=== PATIENT | female | born 1945 | race Caucasian/White ===

== ENCOUNTER → 2016-11-07 | Outpatient (CLI) | payer MEDICARE, BC ==
--- NOTE | 2016-11-07 16:17 | FL ---
EXAMINATION TYPE: FL barium swallow DATE OF EXAM: 11/07/2016 LAP BANDING LIMITED ESOPHAGRAM: CLINICAL HISTORY: Dysphagia and vomiting for 2 to 3 weeks. History of lap band placed 6 years ago. L ap band fill was removed earlier today. TECHNIQUE: Limited esophagram is performed utilizing 2-3 oz of barium. A total of 30 seconds of fluo roscopic time was utilized during procedure. COMPARISON: Prior esophagram October 29, 2011.. FINDINGS: Pre-procedure automatic washer mechanic image shows lap band in satisfactory and stable position in proximal stomach just below the gastroesophageal junction. The patient then drank oral contrast. There is some esophageal dysmotility with abnormal secondary an d tertiary contractions present. There is good flow of contrast along the course of the lap band, th ere is no evidence of contrast extravasation to suggest leak. There is no significant lap band slipp age appreciated. IMPRESSION: No evidence of lap band slippage or significant obstruction.
== END | disposition home or self-care (01) ==
LOC: RADFLMAIN 15:43
PROVIDERS: ATTEND Surgery
DX: K21.9 Gastro-esophageal reflux disease without esophagitis (principal); R11.2 Nausea with vomiting, unspecified
CPT/HCPCS: 74220

== ENCOUNTER → 2016-11-18 | Outpatient (CLI) | payer MEDICARE, BC ==
[2016-11-18 15:20] VITALS: BP 181/72; PULSE 74; RESP 16; TEMP 98.3; BMI 39.4
--- NOTE | 2016-12-02 17:12 | P.HPBAR ---
Bariatric H&P - History & Physicial H&P Date: 11/18/16 History & Physicial: Visit/CC: Wants Band Out Patient initial contact: Initial weight: 96.275 kg Initial weight in pounds: 212.00 Height: 5 ft 1.5 in Initial BMI: 39.4 Last weight: Current weight: 96.275 kg Current weight in pounds: 212.00 Current BMI: 39.4 [place] body weight (based on NIH guidelines): 48.761 kg Excess body weight loss: 0.0% The patient is a 71 year-old F who presents for Bariatric Assessment. Patient presents today for removal LAP-BAND. She's had chronic issues dysphagia. She wished of the band removed. She's had chronic GERD. Past Medical History History of Any Multi-Drug Resistant Organisms: None Reported Smoking Status: Unknown if ever smoked Surgical - Exam Vital Signs Temp Pulse Resp BP 98.3 F 74 16 181/72 11/18/16 15:17 11/18/16 15:17 11/18/16 15:17 11/18/16 15:17 - Abdomen Abdomen: soft, non tender Bariatric Assessment & Plan Plan: Chronic GERD and dysphagia related to her LAP-BAND surgery. Patient will have her LAP-BAND removed. She'll be scheduled for sometime in December. Bariatric Checklist Checklist: Plan: Checklist: EGD: 1. Hiatal hernia: 2. H. Pylori: HgbA1c: Vitamin D: Smoking: Unknown if ever smoked Primary care physician referral: Psychiatry clearance: Cardiology clearance: Sleep study: Diet journal: VTE risk score: VTE risk level: Rehab needs at discharge:
== END | disposition home or self-care (01) ==
LOC: BARWHC3 12:58
PROVIDERS: ATTEND Surgery
DX: Z46.51 Encounter for fitting and adjustment of gastric lap band (principal); K21.9 Gastro-esophageal reflux disease without esophagitis; R13.10 Dysphagia, unspecified
CPT/HCPCS: 99201

== ENCOUNTER 2017-01-06 06:34 | Inpatient (IN) | payer MEDICARE, BC ==
[~2017-01-06 06:34] MED LIST: DEXAMETHASONE SOD PHOSPHATE 10 MG/ML 1 ML VIAL IV ONE; LACTATED RINGERS 1,000 ML IV SCH; ceFAZolin 2 GM in SODIUM CHLORIDE 0.9% 100 ML IVPB ONE
[2017-01-06] MEDS ORDERED: LACTATED RINGERS 1,000 ML IV ONE ×2 (06:55→10:40)
[2017-01-06] MEDS ORDERED: LIDOCAINE 1% 20 ML VIAL (10MG/ML) FOR IV START INTRADERMA ONE (06:55)
[2017-01-06] MEDS ORDERED: SCOPOLAMINE 1.5MG/72HR PATCH TRANSDERM ONE (07:02)
[2017-01-06] MEDS: ONDANSETRON 4 MG/2 ML VIAL IVP ONE ×2 (07:02→09:57)
[2017-01-06 07:05] LABS: Glucose,Whole Blood 149 mg/dL (75-99)
[2017-01-06] MEDS ORDERED: HEPARIN SODIUM,PORCINE 5,000 UNIT/ML 1 ML VIAL SQ ONE (07:44)
--- NOTE | 2017-01-06 07:56 | P.GSHP ---
History of Present Illness H&P Date: 01/06/17 Chief Complaint: Dysphagia This a 71-year-old female who is a chronic issues dysphagia. She presents today for removal of her LAP-BAND system. - Constitutional Constitutional: Reports as per HPI Past Medical History Past Medical History: Diabetes Mellitus, Fibromyalgia, GERD/Reflux, Hypertension , Osteoarthritis (OA), Skin Disorder, Thyroid Disorder Additional Past Medical History / Comment(s): CURRENT: ABD PAIN, NAUSEA, THE PORT IS "GETTING IN THE WAY. GETS RASH UNDER SKIN FOLDS.OCCASIONAL CHEST PAIN. FATTY LIVER. USES CPAP. History of Any Multi-Drug Resistant Organisms: None Reported Past Surgical History: Adenoidectomy, Bariatric Surgery, Cholecystectomy, Hysterectomy, Tonsillectomy Additional Past Surgical History / Comment(s): SINUS SURGERY Past Anesthesia/Blood Transfusion Reactions: Motion Sickness Past Psychological History: Depression Additional Psychological History / Comment(s): SAD Smoking Status: Never smoker Past Alcohol Use History: None Reported Past Drug Use History: None Reported - Past Family History Mother Family Medical History: No Reported History Medications and Allergies Home Medications Medication Instructions Recorded Confirmed Type Azelastine HCl [Astepro] 2 sprays NASAL BID PRN 11/22/16 12/30/16 History Benazepril HCl [Lotensin] 20 tab PO QAM 11/22/16 12/30/16 History Biotin 5,000 mcg PO DAILY 11/22/16 12/30/16 History Cetirizine HCl [Zyrtec ODT] 10 mg PO Q12H 11/22/16 12/30/16 History Docusate [Colace] 1 tab PO HS PRN 11/22/16 12/30/16 History Ergocalciferol (Vitamin D2) 50,000 unit PO MO 11/22/16 12/30/16 History [Vitamin D2] HYDROcodone/APAP 10-325MG [[place] 1 tab PO Q8H PRN 11/22/16 12/30/16 History 10-325] Levothyroxine Sodium [Synthroid] 150 mg PO QAM 11/22/16 12/30/16 History Lidocaine [Lidoderm 5% Patch] 1 patch TOPICAL Q12HR PRN 11/22/16 12/30/16 History Meloxicam [Mobic] 15 mg PO QAM 11/22/16 12/30/16 History Nitroglycerin Sl Tabs [Nitrostat] 0.4 mg PO DIRECTED 11/22/16 12/30/16 History Nystatin [Nystop] 60 gm TOPICAL DIRECTED PRN 11/22/16 12/30/16 History Omeprazole [PriLOSEC] 20 tab PO HS 11/22/16 12/30/16 History Phenylephrine HCl [Sudafed PE] 10 mg PO TID PRN 11/22/16 12/30/16 History Ranitidine HCl 150 mg PO HS PRN 11/22/16 12/30/16 History Torsemide [Demadex] 20 mg PO DAILY PRN 11/22/16 12/30/16 History amLODIPine [Norvasc] 10 tab PO QAM 11/22/16 12/30/16 History metFORMIN HCL [Glucophage] 1,000 tab PO BID 11/22/16 12/30/16 History tiZANidine [Zanaflex] 4 tab PO HS 11/22/16 12/30/16 History Aspirin [Adult Low Dose Aspirin EC] 81 mg PO DAILY 12/30/16 12/30/16 History Gabapentin [Neurontin] 600 mg PO HS 12/30/16 12/30/16 History Multivitamins, Thera [Multivitamin 1 tab PO DAILY 12/30/16 12/30/16 History (formulary)] Nasal [place] Uknown Name 1 spray NASAL DAILY PRN 12/30/16 12/30/16 History Allergies Allergy/AdvReac Type Severity Reaction Status Date / Time amitriptyline [From Elavil] Allergy Rash/Hives Verified 12/30/16 15:59 ketorolac [From Toradol] Allergy Rash/Hives Verified 12/30/16 15:59 latex Allergy Rash/Hives Verified 12/30/16 15:59 metolazone [From Zaroxolyn] Allergy Rash/Hives Verified 12/30/16 15:59 nitrofurantoin Allergy Rash/Hives Verified 12/30/16 15:59 [From Macrobid] tapentadol [From Nucynta] Allergy Rash/Hives Verified 12/30/16 15:59 codeine AdvReac Nausea & Verified 12/30/16 15:59 Vomiting loratadine [From Claritin] AdvReac Unknown Verified 12/30/16 15:59 morphine AdvReac Nausea & Verified 12/30/16 15:59 Vomiting nolex Allergy Rash/Hives Uncoded 12/30/16 15:59 novafed Allergy Rash/Hives Uncoded 12/30/16 15:59 surgical glue Allergy Rash/Hives Uncoded 12/30/16 15:59 Surgical - Exam Vital Signs Temp Pulse Resp BP Pulse Ox 98.0 F 75 18 141/75 95 01/06/17 06:48 01/06/17 06:48 01/06/17 06:48 01/06/17 06:48 01/06/17 06:48 - General well developed, no distress - Eyes PERRL - ENT normal pinna - Neck no masses - Respiratory normal expansion - Cardiovascular Rhythm: regular - Abdomen Abdomen: soft, non tender Results - Labs Abnormal Lab Results - Last 24 Hours (Table) 01/06/17 Range/Units 07:00 POC Glucose (mg/dL) 149 H (75-99) mg/dL Assessment and Plan Plan: Dysphagia, we'll perform removal of LAP-BAND system.
[2017-01-06] MEDS ORDERED: NEOSTIGMINE 1 MG/ML 10 ML VIAL ONE (08:00)
[2017-01-06] MEDS ORDERED: PROPOFOL 10 MG/ML 20 ML VIAL IV ONE (08:00)
[2017-01-06] MEDS ORDERED: SUCCINYLCHOLINE CHLORIDE 100 MG/5 ML SYR IV ONE (08:00)
[2017-01-06] MEDS ORDERED: GLYCOPYRROLATE 0.2 MG/ML 2 ML VIAL ONE (08:00)
[2017-01-06] MEDS ORDERED: fentaNYL (PF) 50 MCG/ML 2 ML AMP ONE (08:00)
[2017-01-06] MEDS ORDERED: ROCURONIUM BROMIDE 10 MG/ML 10 ML VIAL IV ONE (08:00)
[2017-01-06] MEDS ORDERED: MIDAZOLAM 2 MG/2 ML VIAL ONE (08:00)
[2017-01-06] MEDS ORDERED: HYDROmorphone (PF) 1 MG/ML ONE (08:00)
[2017-01-06] MEDS ORDERED: LIDOCAINE 1% INJ 10MG/ML (20 ML MDV) ONE (08:00)
[2017-01-06] MEDS ORDERED: BUPIVACAINE-EPI 0.5%-1:200,000 10 ML VIAL SQ ONE ×2 (08:28)
--- NOTE | 2017-01-06 09:08 | P.OP ---
Date of Procedure: 01/06/17 Preoperative Diagnosis: Dysphagia Postoperative Diagnosis: Dysphagia Procedure(s) Performed: Laparoscopic removal of LAP-BAND system Implants: Anesthesia: ANSHU Surgeon: Kavin Johnston Pathology: none sent Condition: stable Disposition: PACU Indications for Procedure: Operative Findings: Description of Procedure: The patient's placed on the operating table in the supine position. She received general anesthesia. Her abdomen was prepped and draped usual sterile fashion. The skin incision sites were anesthetized 1% local Xylocaine. The skin was incised at the LAP-BAND port then using blunt and sharp dissection with cautery the LAP-BAND port was dissected free from some taste tissues. Next using a 5 mm blade was trocar under direct visitation peritoneal cavity is entered and then the abdomen was insufflated. After adequate insufflation a fibrillar trocar is placed in the right epigastric right lateral and left lateral position. The initial fibrillar trocar was exchanged for a 15 mm trocar and then a 5 and trochars placed the left periumbilical area. The adhesions Adonay device were lysed using sharp dissection. The lap band buckle was then dissected and then the buckle was cut and the LAP-BAND device was withdrawn from around stomach. There is no evidence of any injury to the stomach. The LAP-BAND device was then brought up through the 15 mm trocar site. Is no bleeding seen. The trochars withdrawn. The skin was closed interrupted 3-0 Monocryl suture. Dermabond was applied. Patient top procedure well and was sent to recovery in stable condition.
[2017-01-06 09:33] VITALS: TEMP 97.6
[2017-01-06 09:34] VITALS: RESP 16
[2017-01-06] MEDS: HYDROmorphone 1 MG/ML 1 ML SYRINGE IVP PRN ×2 (09:46→10:04)
[2017-01-06 10:26] LABS: Glucose,Whole Blood 212 mg/dL (75-99)
[2017-01-06] MEDS ORDERED: INSULIN LISPRO (humaLOG) 300 UNIT/3 ML VIAL SQ ONE (10:27)
[2017-01-06 11:06] VITALS: BP 146/78; PULSE 68
== END 2017-01-06 12:08 | disposition home or self-care (01) | DRG 989 ==
LOC: 2ORWHC 06:34 → EDSTATUS 07:45
PROVIDERS: ADMIT Surgery; ATTEND Surgery
PROC: 0DP64CZ Removal of Extraluminal Device from Stomach, Percutaneous Endoscopic Approach (ICD-10-PCS; principal; 2017-01-06 07:40)
DX: K95.09 Other complications of gastric band procedure (principal); E11.9 Type 2 diabetes mellitus without complications; K76.0 Fatty (change of) liver, not elsewhere classified; I10 Essential (primary) hypertension; R13.10 Dysphagia, unspecified; F32.9 Major depressive disorder, single episode, unspecified; K21.9 Gastro-esophageal reflux disease without esophagitis; M79.7 Fibromyalgia; Z79.82 Long term (current) use of aspirin; Z79.899 Other long term (current) drug therapy; Z91.040 Latex allergy status; Z88.6 Allergy status to analgesic agent; Z88.8 Allergy status to other drugs, medicaments and biological substances

== ENCOUNTER → 2017-01-20 | Outpatient (CLI) | payer MEDICARE, BC ==
--- NOTE | 2017-01-20 16:19 | P.HPBAR ---
Bariatric H&P - History & Physicial H&P Date: 01/20/17 History & Physicial: Visit/CC: Patient initial contact: Initial weight: 96.275 kg Initial weight in pounds: Height: Initial BMI: Last weight: Current weight: Current weight in pounds: Current BMI: [place] body weight (based on NIH guidelines): Excess body weight loss: The patient is a 71 year-old F who presents for Bariatric Assessment. Patient is status post lap band removal. She has some mild pain at her port site. She' s also had some mild dysphagia. Past Medical History Past Medical History: Diabetes Mellitus, Fibromyalgia, GERD/Reflux, Hypertension , Osteoarthritis (OA), Skin Disorder, Thyroid Disorder Additional Past Medical History / Comment(s): CURRENT: ABD PAIN, NAUSEA, THE PORT IS "GETTING IN THE WAY. GETS RASH UNDER SKIN FOLDS.OCCASIONAL CHEST PAIN. FATTY LIVER. USES CPAP. History of Any Multi-Drug Resistant Organisms: None Reported Past Surgical History: Adenoidectomy, Bariatric Surgery, Cholecystectomy, Hysterectomy, Tonsillectomy Additional Past Surgical History / Comment(s): SINUS SURGERY Past Anesthesia/Blood Transfusion Reactions: Motion Sickness Past Psychological History: Depression Additional Psychological History / Comment(s): SAD Smoking Status: Never smoker Past Alcohol Use History: None Reported Past Drug Use History: None Reported - Past Family History Mother Family Medical History: No Reported History Surgical - Exam - General well developed, no distress - Eyes PERRL - Abdomen Abdomen: soft, non tender Bariatric Assessment & Plan Plan: Status post removal LAP-BAND. Patient will follow-up in 8 weeks. If her dysphagia is persistent she will undergo EGD. Bariatric Checklist Checklist: Plan: Checklist: EGD: 1. Hiatal hernia: 2. H. Pylori: HgbA1c: Vitamin D: Smoking: Never smoker Primary care physician referral: Psychiatry clearance: Cardiology clearance: Sleep study: Diet journal: VTE risk score: VTE risk level: Rehab needs at discharge:
[2017-01-20 17:47] VITALS: BP 166/79; PULSE 80; TEMP 98.7; BMI 39.4
== END | disposition home or self-care (01) ==
LOC: BARWHC3 14:13
PROVIDERS: ATTEND Surgery
DX: Z48.815 Encounter for surgical aftercare following surgery on the digestive system (principal); Z98.84 Bariatric surgery status
CPT/HCPCS: 99211

== ENCOUNTER → 2017-03-31 | Outpatient (CLI) | payer MEDICARE, BC ==
[2017-03-31 14:36] VITALS: BP 182/76; PULSE 80; RESP 16; TEMP 98.1; BMI 37.8
--- NOTE | 2017-03-31 16:28 | P.HPBAR ---
Bariatric H&P - History & Physicial H&P Date: 03/31/17 History & Physicial: Visit/CC: Band Removal follow up Patient initial contact: Initial weight: 96.275 kg Initial weight in pounds: 212.00 Height: 5 ft 1.5 in Initial BMI: 39.4 Last weight: Current weight: 92.334 kg Current weight in pounds: 203.00 Current BMI: 37.8 [place] body weight (based on NIH guidelines): 48.761 kg Excess body weight loss: 8.6% The patient is a 71 year-old F who presents for Bariatric Assessment. The patient presents today for follow-up. She had her LAP-BAND removed several weeks ago. She is doing well. She is actually lost 5 pounds. She denies any significant dysphagia she's had some mild GERD symptoms. Past Medical History Past Medical History: Diabetes Mellitus, Fibromyalgia, GERD/Reflux, Hypertension , Osteoarthritis (OA), Skin Disorder, Thyroid Disorder Additional Past Medical History / Comment(s): CURRENT: ABD PAIN, NAUSEA, THE PORT IS "GETTING IN THE WAY. GETS RASH UNDER SKIN FOLDS.OCCASIONAL CHEST PAIN. FATTY LIVER. USES CPAP. History of Any Multi-Drug Resistant Organisms: None Reported Past Surgical History: Adenoidectomy, Bariatric Surgery, Cholecystectomy, Hysterectomy, Tonsillectomy Additional Past Surgical History / Comment(s): SINUS SURGERY Past Anesthesia/Blood Transfusion Reactions: Motion Sickness Past Psychological History: Depression Additional Psychological History / Comment(s): SAD Smoking Status: Never smoker Past Alcohol Use History: None Reported Past Drug Use History: None Reported - Past Family History Mother Family Medical History: No Reported History Surgical - Exam Vital Signs Temp Pulse Resp BP 98.1 F 80 16 182/76 03/31/17 14:03 03/31/17 14:03 03/31/17 14:03 03/31/17 14:03 - General well developed, no distress - Eyes PERRL - ENT normal pinna - Neck no masses - Respiratory normal expansion - Cardiovascular Rhythm: regular - Abdomen Abdomen: soft, non tender Bariatric Assessment & Plan Plan: The patient is doing well. She will follow-up in 3 months. If her GERD symptoms worsen she will come in sooner. Bariatric Checklist Checklist: Plan: Checklist: EGD: 1. Hiatal hernia: 2. H. Pylori: HgbA1c: Vitamin D: Smoking: Never smoker Primary care physician referral: Psychiatry clearance: Cardiology clearance: Sleep study: Diet journal: VTE risk score: VTE risk level: Rehab needs at discharge:
== END | disposition home or self-care (01) ==
LOC: BARWHC3 13:16
PROVIDERS: ATTEND Surgery
DX: Z48.815 Encounter for surgical aftercare following surgery on the digestive system (principal); K21.9 Gastro-esophageal reflux disease without esophagitis; Z98.84 Bariatric surgery status
CPT/HCPCS: 99211